=== PATIENT | male | born 1995 | race Caucasian/White ===

== ENCOUNTER 2017-01-23 07:00 | Emergency (ER) | payer SELFPAY ==
[2017-01-23 07:37] VITALS: BP 125/78
--- NOTE | 2017-01-23 08:01 | EDM.PDOC ---
ED HPI GENERAL MEDICAL PROBLEM - General Chief Complaint: General Stated Complaint: RUNNY NOSE Time Seen by Provider: 01/23/17 07:36 Source of Information: Reports: Patient, RN notes reviewed - History of Present Illness INITIAL COMMENTS - FREE TEXT/NARRATIVE: 21-year-old male comes in with nasal and sinus congestion. He said a lot of yellowish drainage from his nose and throat the past couple of days. He has had nonproductive cough. He first became ill 710 days ago. Drainage last evening and today has really worried him. He is worried about "fluid draining from his brain" however he has had no fall or blow to the head at any time in the last several weeks. No recent fever or chills. No headache at this time - Related Data Allergies Allergy/AdvReac Type Severity Reaction Status Date / Time No Known Allergies Allergy Verified 01/23/17 07:37 Home Meds: Home Meds Cephalexin [IJP: Cephalexin] 500 mg PO .EVERY 8 HOURS #20 cap 01/23/17 [Rx] ED ROS GENERAL - Review of Systems Review Of Systems: See Below Constitutional: Denies: fever, chills HEENT: Reports: Rhinitis, Sinus problem. Denies: Throat pain Respiratory: Reports: Cough, Sputum. Denies: Shortness of Breath, Wheezing Cardiovascular: Denies: Chest pain GI/Abdominal: Denies: Abdominal pain, Nausea, Vomiting Musculoskeletal: Denies: neck pain Skin: Reports: no symptoms Neurological: Denies: Headache ED EXAM, GENERAL - Physical Exam Exam: See Below General Appearance: alert, no apparent distress Eye Exam: bilateral eye: PERRL Ears: normal external exam, normal canal, normal TMs Nose: nasal drainage Throat/Mouth: Normal inspection, Normal oropharynx Head: facial tenderness, other (Mild tenderness to percussion bilaterally). No : facial swelling Neck: supple, full range of motion. No: lymphadenopathy (L), lymphadenopathy (R ) Respiratory/Chest: no respiratory distress, lungs clear, normal breath sounds Cardiovascular: regular rate, rhythm Back Exam: normal inspection Extremities: normal inspection, normal range of motion Neurological: alert, oriented, no motor/sensory deficits Course - Vital Signs Last Recorded V/S: Last Vital Signs Temp 98.5 F 01/23/17 07:34 Pulse 78 01/23/17 07:34 Resp 18 01/23/17 07:34 BP 125/78 01/23/17 07:34 Pulse Ox 100 01/23/17 07:34 Departure - Departure Time of Disposition: 07:56 Disposition: Home, Self-Care 01 Condition: fair Clinical Impression: Sinusitis Qualifiers: Sinusitis location: maxillary Chronicity: acute Recurrence: non-recurrent Qualified Code(s): J01.00 - Acute maxillary sinusitis, unspecified Prescriptions: Cephalexin [IJP: Cephalexin] 500 mg PO .EVERY 8 HOURS #20 cap Forms: ED Department Discharge Additional Instructions: Cephalexin antibiotic 3 times daily until gone, vaporizer or humidifier as needed, [id number] decongestant medication as needed, followup clinic if not much better within 5-7 days as expected, return to ED as needed
== END 2017-01-23 08:17 | disposition home or self-care (01) ==
LOC: JD.ED 07:00
DX: J01.00 Acute maxillary sinusitis, unspecified (principal)
CPT/HCPCS: 99282; 99283